=== PATIENT | female | born 1955 | race Asian ===

== ENCOUNTER 2019-02-07 10:56 | Emergency (ER) | payer SELFPAY ==
[~2019-02-07] VITALS: Ht 157.5 cm; Wt 63.6 kg
[2019-02-07] MEDS ORDERED: METF-960 PO (11:42)
[2019-02-07] MEDS ORDERED: AMLO5TAB9 PO (11:42)
[2019-02-07] MEDS ORDERED: ATOR40TA28 PO (11:42)
[2019-02-07] MEDS ORDERED: LOSA50TA64 PO (11:42)
[2019-02-07] MEDS ORDERED: PROPARACAINE HCL 0.5% 15 ML OPHTHALMIC SOLUTION OD ONE (12:30)
[2019-02-07] MEDS ORDERED: ACYCLOVIR 200 MG CAPSULE PO ONE (12:30)
[2019-02-07] MEDS ORDERED: MethylPREDNISolone SOD SUCC 125 MG/2 ML VIAL IM ONE (12:30)
[2019-02-07] MEDS: HYDROCODONE/ACETAMINOPHEN 5-325 MG TABLET PO ONE ×2 (12:53→12:57)
[2019-02-07] MEDS ORDERED: ACETAMINOPHEN 500 MG TABLET PO ONE (13:30)
[2019-02-07 13:50] VITALS: BP 122/83
== END 2019-02-07 14:03 | disposition home or self-care (01) ==
LOC: EMS 10:58
DX: B02.39 Other herpes zoster eye disease (principal); R51 Headache; E11.9 Type 2 diabetes mellitus without complications; E78.00 Pure hypercholesterolemia, unspecified; I10 Essential (primary) hypertension; Z79.84 Long term (current) use of oral hypoglycemic drugs
CPT/HCPCS: 96372; 99284; J2930